=== PATIENT | male | born 1990 | race African-American/Black ===

== ENCOUNTER 2017-06-22 09:09 | Emergency (ER) | payer BC ==
[~2017-06-22] VITALS: Ht 172.7 cm; Wt 68.1 kg
[2017-06-22 10:05] LABS: HEMATOCRIT 38.6 % (39.2-51.8); HEMOGLOBIN 12.7 g/dL (13.7-18.0); WHITE BLOOD COUNT 4.4 x10^3/uL (3.4-10)
[2017-06-22 10:13] LABS: ASPARTATE AMINO TRANSFERASE 44 U/L (15-37); BLOOD UREA NITROGEN 10 mg/dL (7-18)
[2017-06-22] MEDS ORDERED: OMNIPAQUE 350 MG/ML, 100ML BOTTLE ONE (13:33)
[2017-06-22 13:40] VITALS: BP 134/64
== END 2017-06-22 14:08 | disposition home or self-care (01) ==
LOC: ED 09:58
DX: R16.1 Splenomegaly, not elsewhere classified (principal); D50.9 Iron deficiency anemia, unspecified; R79.89 Other specified abnormal findings of blood chemistry; Z90.49 Acquired absence of other specified parts of digestive tract
CPT/HCPCS: 36415; 74020; 74177; 76700; 80053; 81003; 83690; 85025; 99285; Q9967